=== PATIENT | female | born 1995 | race Caucasian/White ===

== ENCOUNTER → 2019-12-12 | Day surgery (SDC) | payer MEDICARE, OTHER, MEDICAID ==
[~2019-12-12] MED LIST: ABILIFY10 MG PO; ACETAMINOPHEN325 M1 PO; AMBIEN CR12.5 MG PO; CHILDREN'S ZYRT10 M1 PO; DRONABINOL5 MG PO; EPIDIOLEX100 MG/1 M PO; FAMOTIDINE 40 M40 M1 PO; FIBER625 MG PO; FISH OIL 1,2001 EAC3 PO; FLUOXETINE HCL40 MG PO; LIBRAX PO; LINZESS145 MCG PO; MAGNESIUM400 MG PO; MIDODRINE HCL 55 M1 PO; MIRALAX17 GM PO; NATURE-THROID32.5 MG PO; PERCOCET PO; PHENERGAN 25 MG25 M1 PO; PHENERGAN 25 MG25 MG PO; SINGULAIR 10 MG10 M1 PO; SUPER THERAVIT1 EACH PO; TRAZODONE HCL50 MG PO; VITAMIN D350 MC1 PO; VYVANSE30 MG PO; ZOLOFT100 MG PO
[2019-12-12 09:17] LABS: HEMATOCRIT 38.9 % (37.0-47.0); HEMOGLOBIN 13.7 gm/dL (12.0-15.0)
--- NOTE | 2019-12-22 13:17 | OP ---
[facility] [address] [place] [address] OPERATIVE REPORT Name: NIRANJANJANET Torres Room: [facility]#: [id number] Admission: 12/12/19 Attend Phys: Marc Guerra Discharge: Date of : 89 Report #: [id number] THIS REPORT FOR: //name// cc: Savage Bell MD, Aneesh K. MD ~ THIS REPORT FOR: //name// CC: Savage Guerra DATE OF SERVICE: 12/12/2019 PREOPERATIVE DIAGNOSIS: Gastroparesis. POSTOPERATIVE DIAGNOSIS: Gastroparesis. OPERATION: Laparoscopic removal of gastric stimulator. SURGEON: Marc Guerra MD ANESTHESIA: General. ESTIMATED BLOOD LOSS: Minimal. SPECIMEN: None. DESCRIPTION OF PROCEDURE: After informed consent was obtained, the patient was brought to the operating room and placed supine. SCDs were placed and working, preoperative antibiotics were administered, general anesthesia was induced. The abdomen was prepped and draped in the usual sterile fashion. A 5 mm incision was made in the left upper quadrant. A 5 mm trocar was placed under direct vision. Pneumoperitoneum was established. An infraumbilical 5 mm trocar and a right upper quadrant 5 mm trocar were placed under direct vision. The wires could be seen coming in from the abdominal wall into the antrum of the stomach. The wires were grasped. I first freed up the wafers on both of the leads. The wafers were removed. I then incised the scar tissue around the back trumpet on each lead. This freed up the wires nicely and they pulled out of the stomach. I insufflated the stomach and did a leak test to make sure there was no perforation of the stomach. The laparoscope was then removed. The CO2 was released. A 7 cm incision was made over the previously made gastric battery site. Cautery dissection was made down to the capsule. Capsule was incised. The generator was removed easily. I then reapproximated the skin with a 3-0 [place] [address] OPERATIVE REPORT Name: JANET UREÑA Room: [facility].#: [id number] Admission: 12/12/19 Attend Phys: Marc Guerra Discharge: Date of : 89 Report #: [id number] deep layer and running 4-0 Monocryl in a running subcuticular fashion for the skin. The incisions were then dressed with Steri-Strips and sterile gauze. Sterile dressings were applied. COMPLICATIONS: None. DISPOSITION: The patient was taken to recovery in satisfactory condition. <ELECTRONICALLY SIGNED> By: Marc Guerra MD 12/22/19 1317 [id number] [id number] Guerra MD /nt
== END | disposition home or self-care (01) ==
LOC: M.SUR 08:17
PROVIDERS: ATTEND Surgery
DX: K31.84 Gastroparesis (principal); R10.9 Unspecified abdominal pain; G89.29 Other chronic pain; E03.9 Hypothyroidism, unspecified; J45.909 Unspecified asthma, uncomplicated; M79.7 Fibromyalgia; F17.210 Nicotine dependence, cigarettes, uncomplicated; Z98.890 Other specified postprocedural states; Z79.899 Other long term (current) drug therapy; Z88.0 Allergy status to penicillin; Z91.040 Latex allergy status; Z88.8 Allergy status to other drugs, medicaments and biological substances